=== PATIENT | male | born 1950 ===

== ENCOUNTER → 2023-06-29 10:18 | Outpatient (REF) | payer OTHER, SELFPAY | LOC: DHCBC MAIN 10:18 | PROVIDERS: ATTENDING PHYSICIAN Internal Medicine Cardiovascular Disease; FAMILY PHYSICIAN Internal Medicine | DX: I51.7 Cardiomegaly (principal); I51.9 Heart disease, unspecified | CPT/HCPCS: 93306 ==

== ENCOUNTER 2024-06-21 22:01 | Emergency (ER) | payer OTHER, SELFPAY ==
[2024-06-21 22:03] VITALS: BP 114/68
--- NOTE | 2024-06-21 23:24 | ED.GENMED ---
History of Present Illness
General
Chief Complaint: Musculo-Skeletal Complaint
Source: patient
Time Seen by Provider: 06/21/24 22:56
History of Present Illness
History of Present Illness:
74-year-old male with past medical history of hypertension, hyperlipidemia, previous VA status post quadruple bypass surgery, COPD, previous smoker presenting to the ER for evaluation after he developed atraumatic pain behind his right knee earlier
this morning upon awakening. Pain has persisted although patient does note somewhat improved presently than it was earlier this evening. He denies any trauma, focal weakness or numbness, chest pain or shortness of breath or any other concerns.
Patient did attempt some Tylenol with minimal relief.
Past History
Past History
ED Past Medical History: COPD, HTN, Hypercholesterolemia and VA
ED Past Surgical History: Cardiac and Other
Social History
Tobacco: Former smoker
Alcohol: None
Drug: None
Personal:
Living: with family
Review of Systems
Review of Systems
All Other Systems: ROS reviewed and negative except as documented in HPI and ROS
Phy Exam
Physical Exam
Physical Exam:
GENERAL: Alert , in no apparent distress
EYE: conjunctiva clear
Head: Normocephalic atraumatic
NECK: Supple,
ENT: mmm.
LUNGS: no acute respiratory distress
NEUROLOGICAL: Alert and oriented
SKIN: Warm and dry, skin intact. Varicose veins noted to bilateral lower extremities
MUSCULOSKELETAL: well perfused. Easily palpable pedal and tibial pulse. No focal tenderness along the anterior posterior knee. No overlying erythema. No effusions. Patient allows for full range of motion.
PSYCH: Normal and appropriate interaction.
Scores
Heart Failure Risk
Heart Failure Risk Score: Not Applicable
Heart Score for Chest Pain Patients
STEMI patient?: Not applicable
Withdrawal Assessment of Alcohol
Withdrawal Assessment Completed?: Not applicable
Course
Orders/Labs/Results
Orders:
Orders
06/21/24 22:42
CR Knee- Right 4 Or More View* Urgent
Comment:
Reason For Exam: pain
06/21/24 22:57
US Periph Venous LOWER Ext RT Urgent
Comment:
Reason For Exam: pain behind right knee
Vital Signs
Initial and Last Documented VS:
Initial Vital Signs
Temp Pulse Resp BP Pulse Ox
97.8 F 82 18 114/68 95
06/21/24 22:03 06/21/24 22:03 06/21/24 22:03 06/21/24 22:03 06/21/24 22:03
Last Documented Vital Signs
Temp Pulse Resp BP Pulse Ox
97.8 F 82 18 114/68 95
06/21/24 22:03 06/21/24 22:03 06/21/24 22:03 06/21/24 22:03 06/21/24 22:03
MDM/Problems Addressed
Differential Diagnosis Includes:
DVT, Mcdonald's cyst, osteoarthritis
MDM/Problems Addressed:
74-year-old male presenting the ER for atraumatic posterior right knee pain. Patient states he was most concerned for possible DVT. He does have risk factors given his known CAD, former smoking history. Will check ultrasound to rule out DVT.
X-ray had already been ordered on arrival which does show degenerative changes. No acute fracture. Anticipate discharge home and continued outpatient manage
*Radiology
Radiology exam reviewed: preliminary read by ED provider (No acute fracture. Degenerative changes noted) and radiology read reviewed
*Pulse Oximetry
Patient hypoxic: no
*Critical Care Note
Total Time (30-74mins, 75-104mins- exclusive of procedures): Not Applicable
Patient Management
Escalation/DeEscalation of care consider admission/obs:
Ultrasound is negative for DVT and Mcdonald's cyst. Small lateral joint effusion. Advised ice and elevation, NSAIDs/Tylenol as needed for pain. Information for orthopedist was provided. Stable for discharge home and aware of return precautions to
the ER.
ED Attending Note
-
Portions of this chart may have been created with voice recognition software.� Occasional wrong word or��sound alike� substitutions may have occurred due to the inherent limitations of voice recognition software.
Discharge Plan
Departure
Patient Disposition: Home (Routine Discharge)
Date of Disposition: 06/22/24
Time of Disposition: 00:35
Patient with high blood pressure during this ER visit?: No
Discharge Problem:
Knee pain, right
Instructions: Knee Pain (DC)
Referrals:
Deonna Pruitt MD [Family Provider] -
Jhonathan Murrell MD [Active] - (Ortho - Call as needed)
Interventions
Interventions:
*Risk Screen - Suicide Last Done: 06/21/24 22:03
*General Assessment Last Done: 06/21/24 22:03
*Neglect/Abuse Screening Last Done: 06/21/24 22:03
*ED COVID-19 Vaccine History Last Done: 06/21/24 22:03
Discharge Date and Time
Print Language: [id number]
== END 2024-06-22 00:48 | disposition home or self-care (01) ==
LOC: EMR 22:01
PROVIDERS: EMERGENCY PHYSICIAN Emergency Medicine; FAMILY PHYSICIAN Internal Medicine
DX: M25.561 Pain in right knee (principal); M25.461 Effusion, right knee; I10 Essential (primary) hypertension; E78.00 Pure hypercholesterolemia, unspecified; I25.2 Old myocardial infarction; J44.9 Chronic obstructive pulmonary disease, unspecified; Z87.891 Personal history of nicotine dependence; I25.10 Atherosclerotic heart disease of native coronary artery without angina pectoris
CPT/HCPCS: 99284; 73564; 93971